=== PATIENT | male | born 1990 | race Caucasian/White ===

== ENCOUNTER 2019-11-29 15:10 | Emergency (ER) | payer OTHER ==
[~2019-11-29] VITALS: Ht 180.3 cm; Wt 96.2 kg
[2019-11-29 15:15] VITALS: BP 118/75
[2019-11-29] MEDS ORDERED: DIPH,PERTUSS(ACELL),TET VAC/PF 0.5 ML SYRINGE. VAX IM ONE (15:45)
--- NOTE | 2019-11-29 16:14 | RAD ---
Exam: Left finger 3 views INDICATION: Trauma TECHNIQUE: Frontal view of the hand with oblique and lateral views of the third digit Comparisons: None FINDINGS: Bone mineralization is normal. No acute or healed fractures. Soft tissues are unremarkable. Joint spaces are well-maintained. IMPRESSION: No acute osseous abnormality. Electronically signed by: Duc Carmona MD (11/29/2019 4:12 PM) [id number]
--- NOTE | 2019-11-29 16:23 | PHYS DOC ---
Past History Past Medical History: No Pertinent History Past Surgical History: Other Additional Past Surgical Histo: RIGHT LEG Alcohol Use: Occasionally General Adult EDM: Chief Complaint: LACERATION/AVULSION HPI: HPI: 29-year-old male presents with concern for fracture of his left middle finger. The patient was holding a horse by a rope when the horse started to barnett and pull away. The rope slipped through his hand and he has some rope odonnell. He also had his left fingers compressed against a metal plate. He is concerned about fracture. His tetanus is not up-to-date. He has no other concerns at this time. Review of Systems: Review of Systems: Constitutional: Denies fever or chills Eyes: Denies change in visual acuity HENT: Denies nasal congestion or sore throat Respiratory: Denies cough or shortness of breath Cardiovascular: Denies chest pain or edema GI: Denies abdominal pain, nausea, vomiting, bloody stools or diarrhea : Denies dysuria Musculoskeletal: Left middle finger pain Integument: Denies rash Neurologic: Denies headache, focal weakness or sensory changes Endocrine: Denies polyuria or polydipsia Lymphatic: Denies swollen glands Psychiatric: Denies depression or anxiety Heart Score: Risk Factors: Risk Factors: DM, Current or recent (<one month) smoker, HTN, HLP, family history of CAD, obesity. Risk Scores: Score 0 - 3: 2.5% MACE over next 6 weeks - Discharge Home Score 4 - 6: 20.3% MACE over next 6 weeks - Admit for Clinical Observation Score 7 - 10: 72.7% MACE over next 6 weeks - Early Invasive Strategies Current Medications: Current Meds: Current Medications Medications (Trade) Dose Ordered Sig/Tereso Start Time Stop Time Status Last Admin Dose Admin Diphtheria/ Pertussis/Tetanus Vacc (ADACEL TDap SYRINGE) 0.5 ml ONCE ONCE 11/29/19 15:45 11/29/19 15:46 DC Allergies: Allergies: Allergies Coded Allergies Type Severity Reaction Last Updated Verified erythromycin base Allergy Unknown 11/29/19 Yes Physical Exam: PE: Constitutional: Well developed, well nourished, no acute distress, non-toxic appearance. [] HENT: Normocephalic, atraumatic, bilateral external ears normal, oropharynx moist, no oral exudates, nose normal. [] Eyes: PERRLA, EOMI, conjunctiva normal, no discharge. [] Neck: Normal range of motion, no tenderness, supple, no stridor. [] Cardiovascular:Heart rate regular rhythm, no murmur [] Lungs & Thorax: Bilateral breath sounds clear to auscultation [] Abdomen: Bowel sounds normal, soft, no tenderness, no masses, no pulsatile masses. [] Skin: Abrasions and friction odonnell of the bilateral hands and fingers. [] Back: No tenderness, no CVA tenderness. [] Extremities: Mild tenderness and swelling of the left little finger. Range of motion intact. [] Neurologic: Alert and oriented X 3, normal motor function, normal sensory function, no focal deficits noted. [] Psychologic: Affect normal, judgement normal, mood normal. [] Current Patient Data: Vital Signs: Vital Signs Date Time Temp Pulse Resp B/P (MAP) Pulse Ox O2 Delivery O2 Flow Rate FiO2 11/29/19 15:15 97.7 70 16 118/75 (89) 98 Room Air EKG: EKG: [] Radiology/Procedures: Radiology/Procedures: [] Impressions: Exam: Left finger 3 views INDICATION: Trauma TECHNIQUE: Frontal view of the hand with oblique and lateral views of the third digit Comparisons: None FINDINGS: Bone mineralization is normal. No acute or healed fractures. Soft tissues are unremarkable. Joint spaces are well-maintained. IMPRESSION: No acute osseous abnormality. Electronically signed by: Duc Paiz MD (11/29/2019 4:12 PM) [id number] DICTATED AND SIGNED BY: DUC PAIZ MD DATE: 11/29/19 1612 CC: ARTUR AGUSTIN DO; PCP,NO ~ Course & Med Decision Making: Course & Med Decision Making Pertinent Labs and Imaging studies reviewed. (See chart for details) The patient's x-ray is negative for fracture. We have cleaned out his abrasions. We have updated his tetanus. He is stable for discharge at this time. [] Dragon Disclaimer: Dragbarbie Disclaimer: This electronic medical record was generated, in whole or in part, using a voice recognition dictation system. Departure Departure: Impression: Primary Impression: Abrasion, hand w/o infection Additional Impression: Superficial burn of left hand including fingers Qualified Codes: T23.102A - Burn of first degree of left hand, unspecified site, initial encounter; T23.132A - Burn of first degree of multiple left fingers (nail), not including thumb, initial encounter Disposition: 01 HOME/RESIDENCE PRIOR TO ADM Condition: STABLE Referrals: PCP,NO (PCP) Patient Instructions: Abrasion, [id number] Justification of Admission: Justification of Admission: Justification of Admission Dx: N/A ARTUR AGUSTIN DO Nov 29, 2019 16:23
== END 2019-11-29 16:35 | disposition home or self-care (01) ==
LOC: ER 15:10
DX: T23.102A Burn of first degree of left hand, unspecified site, initial encounter (principal); T23.132A Burn of first degree of multiple left fingers (nail), not including thumb, initial encounter; Z88.1 Allergy status to other antibiotic agents; X08.8XXA Exposure to other specified smoke, fire and flames, initial encounter; Y93.89 Activity, other specified; Y92.89 Other specified places as the place of occurrence of the external cause; Y99.8 Other external cause status
CPT/HCPCS: 73140; 99283

== ENCOUNTER 2020-04-19 13:43 | Emergency (ER) | payer OTHER ==
[~2020-04-19] VITALS: Ht 180.3 cm; Wt 95.1 kg
--- NOTE | 2020-04-19 14:41 | PHYS DOC ---
Past History Past Medical History: No Pertinent History Past Surgical History: Other Additional Past Surgical Histo: RIGHT LEG Alcohol Use: Occasionally General Adult EDM: Chief Complaint: SYNCOPE HPI: HPI: Patient is a 30-year-old male who presents with syncope. Patient was at the dentist getting an x-ray when he had a syncopal episode. Witnesses state that he fell backwards and hit his head. Patient has laceration to the posterior, left side of his head. Patient states he has a history of syncope. Patient is reporting a headache and pain to the back of his head. Patient denies any health history. Review of Systems: Review of Systems: Constitutional: Denies fever or chills Eyes: Denies change in visual acuity HENT: Denies nasal congestion or sore throat Respiratory: Denies cough or shortness of breath Cardiovascular: Denies chest pain or edema GI: Denies abdominal pain, nausea, vomiting, bloody stools or diarrhea : Denies dysuria Musculoskeletal: Denies back pain or joint pain Integument: Laceration to posterior left head Neurologic: Denies headache, focal weakness or sensory changes Endocrine: Denies polyuria or polydipsia Lymphatic: Denies swollen glands Psychiatric: Denies depression or anxiety Allergies: Allergies: Allergies Coded Allergies Type Severity Reaction Last Updated Verified erythromycin base Allergy Unknown 11/29/19 Yes Physical Exam: PE: Constitutional: Well developed, well nourished, no acute distress, non-toxic appearance. [] HENT: Normocephalic, atraumatic, bilateral external ears normal, oropharynx moist, no oral exudates, nose normal. [] Eyes: PERRLA, EOMI, conjunctiva normal, no discharge. [] Neck: Normal range of motion, tenderness Cardiovascular:Heart rate regular rhythm, no murmur [] Lungs & Thorax: Bilateral breath sounds clear to auscultation [] Abdomen: Bowel sounds normal, soft, no tenderness, no masses, no pulsatile masses. [] Skin: Laceration to posterior, left head Back: No tenderness, no CVA tenderness. [] Extremities: No tenderness, no cyanosis, no clubbing, ROM intact, no edema. [] Neurologic: Alert and oriented X 3, normal motor function, normal sensory function, no focal deficits noted. [] Psychologic: Affect normal, judgement normal, mood normal. [] Current Patient Data: Vital Signs: Vital Signs Date Time Temp Pulse Resp B/P (MAP) Pulse Ox O2 Delivery O2 Flow Rate FiO2 04/19/20 13:48 98.0 86 16 134/80 (98) 100 Room Air EKG: EKG: Sinus rhythm. Heart rate 77 bpm. [] Radiology/Procedures: Radiology/Procedures: []PQRS Compliance Statement: One or more of the following individualized dose reduction techniques were utilized for this examination: 1. Automated exposure control 2. Adjustment of the mA and/or kV according to patient size 3. Use of iterative reconstruction technique CT HEAD AND CERVICAL SPINE WITHOUT CONTRAST History: Reason: fall, syncope / Comparison: None. Procedure: Axial images are obtained of the head from the skull base through the vertex without IV contrast. Noncontrast helical CT of the cervical spine was performed. Axial, sagittal, and coronal reconstructions were obtained. Findings: The ventricles and sulci are normal for the patient's age. No mass-effect, midline shift, hemorrhage or obvious acute infarction is identified. Basilar cisterns are patent. Bone windows demonstrate no significant calvarial abnormality. There is moderate left parietal scalp hematoma. Tiny foci of subcutaneous air may indicate laceration. Mucosal thickening bilateral maxillary sinuses. Mastoid air cells are well aerated. There is no evidence of acute fracture or acute malalignment of the cervical spine. Straightening of normal cervical lordosis is likely due to c-collar. There are no perched or jumped facet joints. There is no disc space narrowing. The vertebral body height and alignment are maintained. 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 Visualized soft tissues of the neck demonstrate no significant abnormalities. The visualized lung apices are clear. IMPRESSION: 1. No acute intracranial abnormality. 2. No acute fracture of the cervical spine. 3. Moderate left parietal scalp hematoma. Electronically signed by: Ric Lezama MD (04/19/2020 3:09 PM) [facility] XR CHEST 1V History: Reason: syncope / Spl. Instructions: / History: Comparison: None. Findings: No consolidation or pleural effusion. Normal heart size. No pneumothorax. Impression: 1. No acute cardiopulmonary process. Electronically signed by: Vinny Banda DO (04/19/2020 3:02 PM) [facility] 4 cm Laceration to posterior left head. Laceration was cleaned. Five melissa placed. Patient tolerated procedure well. Heart Score: HEART Score for Chest Pain: HEART Score for Chest Pain Response (Comments) Value History Slighlty/Non-Suspicious 0 ECG Normal 0 Age < 45 0 Risk Factors No Risk Factors 0 Total 0 Risk Factors: Risk Factors: DM, Current or recent (<one month) smoker, HTN, HLP, family history of CAD, obesity. Risk Scores: Score 0 - 3: 2.5% MACE over next 6 weeks - Discharge Home Score 4 - 6: 20.3% MACE over next 6 weeks - Admit for Clinical Observation Score 7 - 10: 72.7% MACE over next 6 weeks - Early Invasive Strategies Course & Med Decision Making: Course & Med Decision Making Pertinent Labs and Imaging studies reviewed. (See chart for details) []Patient is a 30-year-old male who presents with syncope. Patient was at the dentist getting an x-ray when he had a syncopal episode. Witnesses state that he fell backwards and hit his head. Patient has 2 lacerations to the posterior, left side of his head. Patient states he has a history of syncope. Patient is reporting a headache and pain to the back of his head. Patient denies any health history. C-collar placed on patient due to neck pain and syncopal episode. CT head and neck ordered to rule out bleeding and/or fracture.CT head neck negative for any acute abnormality. Chest x-ray negative. C-collar removed. [place] placed on laceration to posterior head. Patient given instructions on follow-up with PCP for suture removal. Dragon Disclaimer: Dragon Disclaimer: This electronic medical record was generated, in whole or in part, using a voice recognition dictation system. Departure Departure: Impression: Primary Impression: Syncope Qualified Codes: R55 - Syncope and collapse Disposition: ADMITTED INPT THIS HOSP Condition: IMPROVED Referrals: PCP,NO (PCP) Patient Instructions: Staple Wound Closure, [id number], Syncope, [id number] Additional Instructions: You were seen in the emergency room today for a syncopal episode. You had melissa placed on the laceration to the back of your head. Please return to the emergency room with any worsening symptoms or concerns. Otherwise follow-up with your PCP. EMERGENCY DEPARTMENT GENERAL DISCHARGE INSTRUCTIONS Thank you for coming to [facility] (ED) today and trusting us with you care. We trust that you had a positivie experience in our Emergency Department. If you wish to speak to the department management, you may call the director at [phone]. YOUR FOLLOW UP INSTRUCTIONS ARE FOLLOWS: 1. Do you have a private Doctor? If you do not have a private doctor, please ask for a resource list of physicians or clinics that may be able to assist you with follow up care. 2. The Emergency Physician has interpreted your x-rays. The X-Ray specialist will also review them. If there is a change in the findings, you will be notified in 48 hours when at all possible. 3. A lab test or culture has been done, your results will be reviewed and you will be notified if you need a change in treatment. ADDITIONAL INSTRUCTIONS AND INFORMATION: 1. Your care today has been supervised by a physician who is specially trained in emergency care. Many problems require more than one evaluation for a complete diagnosis and treatment. We recommend that you schedule your follow up appointment as recommended to ensure complete treatment of you illness or injury. If you are unable to obtain follow up care and continue to have a problem, or if your condition worsens, we recommend that you return to the ED. 2. We are not able to safely determine your condition over the phone nor are we able to give sound medical advice over the phone. For these safety reasons, if you call for medical advice we will ask you to come to the ED for further evaluation. 3. If you have any questions regarding these discharge instructions please call the ED at [phone]. SAFETY INFORMATION: In the interest of safety, wellness, and injury prevention; we encourage you to wear your sealbelt, if you smoke; quite smoking, and we encourage family to use a protective helmet for bicycling and other sporting events that present an increased risk for head injury. IF YOUR SYMPTOMS WORSEN OR NEW SYMPTOMS DEVELOP, OR YOU HAVE CONCERNS ABOUT YOUR CONDITION; OR IF YOUR CONDITION WORSENS WHILE YOU ARE WAITING FOR YOUR FOLLOW UP APPO INTMENT; EITHER CONTACT YOUR PRIMARY CARE DOCTOR, THE PHYSICIAN WHOSE NAME AND NUMBER YOU WERE GIVEN, OR RETURN TO THE ED IMMEDIATELY. JUJU HIDALGO APRN Apr 19, 2020 14:41
--- NOTE | 2020-04-19 15:04 | RAD ---
XR CHEST 1V History: Reason: syncope / Spl. Instructions: / History: Comparison: None. Findings: No consolidation or pleural effusion. Normal heart size. No pneumothorax. Impression: 1. No acute cardiopulmonary process. Electronically signed by: Vinny Banda DO (04/19/2020 3:02 PM) [facility]
--- NOTE | 2020-04-19 15:11 | RAD ---
PQRS Compliance Statement: One or more of the following individualized dose reduction techniques were utilized for this examinat ion: 1. Automated exposure control 2. Adjustment of the mA and/or kV according to patient size 3. Use of iterative reconstruction technique CT HEAD AND CERVICAL SPINE WITHOUT CONTRAST History: Reason: fall, syncope / Comparison: None. Procedure: Axial images are obtained of the head from the skull base through the vertex without IV co ntrast. Noncontrast helical CT of the cervical spine was performed. Axial, sagittal, and coronal rec onstructions were obtained. Findings: The ventricles and sulci are normal for the patient's age. No mass-effect, midline shift, hemorrhage or obvious acute infarction is identified. Basilar cistern s are patent. Bone windows demonstrate no significant calvarial abnormality. There is moderate left parietal scalp hematoma. Tiny foci of subcutaneous air may indicate laceration. Mucosal thickening bilateral maxillary sinuses. Mastoid air cells are well aerated. There is no evidence of acute fracture or acute malalignment of the cervical spine. Straightening of normal cervical lordosis is likely due to c-collar. There are no perched or jumped f acet joints. There is no disc space narrowing. The vertebral body height and alignment are maintained . 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 Visualized soft tissues of the neck demonstrate no significant abnormalities. The visualized lung api betty are clear. IMPRESSION: 1. No acute intracranial abnormality. 2. No acute fracture of the cervical spine. 3. Moderate left parietal scalp hematoma. Electronically signed by: Ric Lezama MD (04/19/2020 3:09 PM) [facility]
[2020-04-19 15:37] LABS: BASO % 0 % (0-3); EOS # 0.1 x10^3/uL (0.0-0.7); EOS % 1 % (0-3); HEMATOCRIT 44.9 % (39.0-53.0); HEMOGLOBIN 15.3 g/dL (13.0-17.5); LYMPH # 1.3 x10^3/uL (1.0-4.8); LYMPH % 14 % (24-48); MEAN CORPUSCULAR HEMOGLOBIN 30 pg (25-35); MEAN CORPUSCULAR HGB CONC 34 g/dL (31-37); MEAN CORPUSCULAR VOLUME 88 fL (79-100); MONO # 0.6 x10^3/uL (0.0-1.1); MONO % 7 % (0-9); NEUT # 7.7 x10^3uL (1.8-7.7); NEUT % 78 % (31-73); PLATELET COUNT 201 x10^3/uL (140-400); RED BLOOD COUNT 5.09 x10^6/uL (4.30-5.70); RED CELL DISTRIBUTION WIDTH 13.2 % (11.5-14.5); WHITE BLOOD COUNT 9.8 x10^3/uL (4.0-11.0)
[2020-04-19 16:10] VITALS: BP 128/79
--- NOTE | 2020-04-19 16:18 | EKG ---
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
[2020-04-19 16:27] LABS: CALCIUM 9.1 mg/dL (8.5-10.1); GFR 86.6; POTASSIUM 3.9 mmol/L (3.5-5.1)
== END 2020-04-19 16:44 | disposition admitted as inpatient to this hospital (09) ==
LOC: ER 13:43
DX: S01.91XA Laceration without foreign body of unspecified part of head, initial encounter (principal); R55 Syncope and collapse; Z88.1 Allergy status to other antibiotic agents; W18.09XA Striking against other object with subsequent fall, initial encounter; Y93.89 Activity, other specified; Y92.89 Other specified places as the place of occurrence of the external cause; Y99.8 Other external cause status
CPT/HCPCS: 12013; 36415; 70450; 71045; 72125; 80048; 84484; 85025; 93005; 99285-25